=== PATIENT | male | born 1960 | race Caucasian/White ===

== ENCOUNTER 2018-08-04 05:39 | Emergency (ER) | payer MEDICAID ==
[~2018-08-04] VITALS: Ht 172.7 cm; Wt 73.5 kg
[2018-08-04 07:45] LABS: CALCIUM 8.7 mg/dL (8.5-10.1); CHLORIDE SERUM 101 mmol/L (98-107); CREATININE SERUM 0.9 mg/dL (0.7-1.3); GFR1 > 60 mL/min; GLUCOSE SERUM 410 mg/dL (74-106); POTASSIUM SERUM 4.9 mmol/L (3.5-5.1); SODIUM SERUM 136 mmol/L (136-145)
[2018-08-04 11:38] VITALS: BP 164/81
== END 2018-08-04 11:38 | disposition home or self-care (01) ==
LOC: ED 05:39
PROVIDERS: Specialist
DX: R19.7 Diarrhea, unspecified (principal); R11.0 Nausea; E86.0 Dehydration; G89.29 Other chronic pain; M79.642 Pain in left hand; M79.641 Pain in right hand; M79.605 Pain in left leg; M79.604 Pain in right leg; E11.65 Type 2 diabetes mellitus with hyperglycemia; E78.00 Pure hypercholesterolemia, unspecified
CPT/HCPCS: J1815; J1885; J7030; Q0162

== ENCOUNTER 2018-08-06 01:14 | Emergency (ER) | payer MEDICAID ==
[~2018-08-06] VITALS: Ht 180.3 cm; Wt 72.7 kg
[2018-08-06 01:39] VITALS: Ht 180.3 cm; Wt 72.7 kg
[2018-08-06 03:23] VITALS: BP 145/83
== END 2018-08-06 03:23 | disposition home or self-care (01) ==
LOC: ED 01:14
DX: R19.7 Diarrhea, unspecified (principal); R11.10 Vomiting, unspecified; I10 Essential (primary) hypertension; E11.9 Type 2 diabetes mellitus without complications; E78.00 Pure hypercholesterolemia, unspecified
CPT/HCPCS: Q0162

== ENCOUNTER 2018-08-12 13:43 | Emergency (ER) | payer MEDICAID ==
[~2018-08-12] VITALS: Ht 180.3 cm; Wt 74.8 kg
[2018-08-12 13:45] VITALS: Ht 180.3 cm; Wt 74.8 kg
[2018-08-12 15:05] LABS: CALCIUM 9.3 mg/dL (8.5-10.1); CARBON DIOXIDE 27.4 mmol/L (21-32); CREATININE SERUM 1.5 mg/dL (0.7-1.3); POTASSIUM SERUM 4.2 mmol/L (3.5-5.1)
[2018-08-12 15:10] LABS: BILIRUBIN TOTAL 0.4 mg/dL (0.20-1.00); TOTAL PROTEIN, SERUM 7.9 g/dL (6.4-8.2)
[2018-08-12 15:20] LABS: BASOPHIL % 0.7 % (0-2); PLATELET COUNT 334 x10^3mcL (130-400)
[2018-08-12 15:23] LABS: RED CELL DISTRIBUTION WIDTH 19.1 % (11.5-14.5)
[2018-08-12 16:30] VITALS: BP 119/77
== END 2018-08-12 17:10 | disposition home or self-care (01) ==
LOC: ED 13:43
PROVIDERS: Emergency Medicine
DX: R11.10 Vomiting, unspecified (principal); R19.7 Diarrhea, unspecified; R10.9 Unspecified abdominal pain; E11.65 Type 2 diabetes mellitus with hyperglycemia; I10 Essential (primary) hypertension; E78.00 Pure hypercholesterolemia, unspecified
CPT/HCPCS: 36415; 87046; 87046-59

== ENCOUNTER 2018-12-29 07:16 | Emergency (ER) | payer MEDICAID ==
[~2018-12-29] VITALS: Ht 180.3 cm; Wt 69.4 kg
[2018-12-29 07:20] VITALS: BP 178/99; Ht 180.3 cm; Wt 69.4 kg
== END 2018-12-29 07:41 | disposition home or self-care (01) ==
LOC: ED 07:16
DX: J02.9 Acute pharyngitis, unspecified (principal); I10 Essential (primary) hypertension; E11.9 Type 2 diabetes mellitus without complications; E78.00 Pure hypercholesterolemia, unspecified

== ENCOUNTER 2019-12-20 10:40 | Emergency (ER) | payer MEDICAID ==
[~2019-12-20] VITALS: Ht 180.3 cm; Wt 82.6 kg
[2019-12-20 10:44] VITALS: Ht 180.3 cm; Wt 82.6 kg
[2019-12-20 11:20] LABS: BASOPHIL % 0.2 % (0-2); PLATELET COUNT 247 x10^3mcL (130-400); RED CELL DISTRIBUTION WIDTH 13.8 % (11.5-14.5)
[2019-12-20 11:22] VITALS: BP 157/105
[2019-12-20 11:28] LABS: ALBUMIN 3.9 g/dL (3.4-5.0); CARBON DIOXIDE 27.3 mmol/L (21-32); CHLORIDE SERUM 101 mmol/L (98-107); CREATININE SERUM 0.7 mg/dL (0.7-1.3); GFR1 > 60 mL/min; GLUCOSE SERUM 174 mg/dL (74-106); SODIUM SERUM 136 mmol/L (136-145); TOTAL PROTEIN, SERUM 7.8 g/dL (6.4-8.2)
[2019-12-20 11:29] LABS: ALKALINE PHOSPHATASE 57 U/L (46-116); ALT/SGPT 173 U/L (16-63); AST/SGOT 10 U/L (15-37); BILIRUBIN TOTAL 0.6 mg/dL (0.20-1.00); CALCIUM 8.7 mg/dL (8.5-10.1)
== END 2019-12-20 11:22 | disposition short-term general hospital (02) ==
LOC: ED 10:40
DX: I21.3 ST elevation (STEMI) myocardial infarction of unspecified site (principal); I10 Essential (primary) hypertension; E11.9 Type 2 diabetes mellitus without complications; E78.00 Pure hypercholesterolemia, unspecified; M06.9 Rheumatoid arthritis, unspecified
CPT/HCPCS: 36415; Q0092

== ENCOUNTER 2020-01-02 08:30 | Inpatient (IN) | payer MEDICAID ==
[~2020-01-02] VITALS: Ht 180.3 cm; Wt 80.4 kg
[2020-01-02 10:12] VITALS: Ht 180.3 cm; Wt 80.4 kg
[2020-01-02 11:22] LABS: PLATELET COUNT 261 x10^3mcL (130-400); RED CELL DISTRIBUTION WIDTH 13.4 % (11.5-14.5)
[2020-01-02 13:37] LABS: ALBUMIN 3.8 g/dL (3.4-5.0); ALKALINE PHOSPHATASE 52 U/L (46-116); ALT/SGPT 38 U/L (16-63); AST/SGOT 17 U/L (15-37); BILIRUBIN TOTAL 0.3 mg/dL (0.20-1.00); CALCIUM 8.9 mg/dL (8.5-10.1); CARBON DIOXIDE 24.7 mmol/L (21-32); CHLORIDE SERUM 104 mmol/L (98-107); CREATININE SERUM 0.5 mg/dL (0.7-1.3); GFR1 > 60 mL/min; GLUCOSE SERUM 93 mg/dL (74-106); LIPASE 92 IU/L (73-393); MAGNESIUM 1.7 mg/dL (1.8-2.4); POTASSIUM SERUM 4.1 mmol/L (3.5-5.1); SODIUM SERUM 139 mmol/L (136-145); T4(THYROXINE) 6.3 ug/dL (4.7-13.3); TOTAL PROTEIN, SERUM 7.7 g/dL (6.4-8.2)
[2020-01-02 13:38] LABS: CHOLESTEROL 129 mg/dL (<200); HDL CHOLESTEROL 29 mg/dL (40-60)
[2020-01-02 13:39] LABS: microscopic required? NO
[2020-01-02 14:11] LABS: urine erythrocyte NEGATIVE (NEGATIVE)
[2020-01-02 14:22] LABS: AMPHETAMINE QUAL UR NONE DETECTED (See below)
[2020-01-02] MEDS ORDERED: FORTAMET1000 MG PO (17:03)
[2020-01-02] MEDS ORDERED: SULFASALAZINE500 MG (17:04)
[2020-01-02] MEDS ORDERED: COZAAR50 M1 (17:06)
[2020-01-02] MEDS ORDERED: GRALISE600 MG PO (17:06)
[2020-01-02] MEDS ORDERED: CARVEDILOL ER40 MG (17:08)
[2020-01-02] MEDS ORDERED: LANTI SQ (18:14)
[2020-01-02 18:23] VITALS: BP 121/73
[2020-01-02 19:11] VITALS: BP 114/62
[2020-01-03 02:55] LABS: CALCIUM 8.2 mg/dL (8.5-10.1); CARBON DIOXIDE 27.7 mmol/L (21-32); CHLORIDE SERUM 105 mmol/L (98-107); CREATININE SERUM 0.6 mg/dL (0.7-1.3); GFR1 > 60 mL/min; GLUCOSE SERUM 66 mg/dL (74-106); POTASSIUM SERUM 3.7 mmol/L (3.5-5.1); SODIUM SERUM 141 mmol/L (136-145)
[2020-01-03 02:57] LABS: BASOPHIL % 1.4 % (0-2); PLATELET COUNT 253 x10^3mcL (130-400); RED CELL DISTRIBUTION WIDTH 12.4 % (11.5-14.5)
[2020-01-03 06:03] VITALS: BP 130/73
[2020-01-03 08:04] VITALS: BP 153/83
[2020-01-03 13:00] VITALS: BP 133/49
[2020-01-03 17:25] VITALS: BP 158/88
[2020-01-03 20:26] VITALS: BP 138/73
[2020-01-04 05:45] VITALS: BP 143/75
[2020-01-04 08:31] VITALS: BP 143/79
[2020-01-04 12:15] VITALS: BP 160/89
[2020-01-04] MEDS ORDERED: NOR5 PO (12:42)
[2020-01-04 13:01] VITALS: BP 160/89
== END 2020-01-04 15:19 | disposition home or self-care (01) | DRG 243 ==
LOC: ED 08:30 → DU 15:59
PROVIDERS: Emergency Medicine; ADMIT Family Medicine
DX: K21.9 Gastro-esophageal reflux disease without esophagitis (principal); E11.42 Type 2 diabetes mellitus with diabetic polyneuropathy; E11.65 Type 2 diabetes mellitus with hyperglycemia; M94.0 Chondrocostal junction syndrome [Tietze]; I16.0 Hypertensive urgency; E78.00 Pure hypercholesterolemia, unspecified; Z79.4 Long term (current) use of insulin; Z68.25 Body mass index [BMI] 25.0-25.9, adult; Z79.84 Long term (current) use of oral hypoglycemic drugs; Z91.19 Patient's noncompliance with other medical treatment and regimen
CPT/HCPCS: 82962; 83880; 85378; 87804; 90658; 90732; G0378; J1815; J3490; Q0092

== ENCOUNTER → 2020-01-26 | Outpatient (CLI) | payer MEDICAID ==
[~2020-01-26] MED LIST: CARVEDILOL ER40 MG; COZAAR50 M1; FORTAMET1000 MG PO; GRALISE600 MG PO; LANTI SQ; NOR5 PO; SULFASALAZINE500 MG
== END | disposition home or self-care (01) ==
LOC: RD 09:22
DX: M25.562 Pain in left knee (principal); M25.561 Pain in right knee